=== PATIENT | male | born 1935 | race Caucasian/White ===

== ENCOUNTER 2016-08-31 12:03 | Day surgery (SDC) | payer MEDICARE, OTHER ==
[2016-08-31] MEDS ORDERED: KETOROLAC 0.45% OPHTH DROPS OPTH ONE (12:20)
[2016-08-31] MEDS ORDERED: TROPICAMIDE 1% OPHTH 2 ML DROPS OPTH ONE (12:20)
[2016-08-31] MEDS ORDERED: CYCLOPENTOLATE 1% OPHTH DROPS 2 ML OPTH ONE (12:20)
[2016-08-31] MEDS ORDERED: LACTATED RINGERS 500 ML IV ONE (12:49)
[2016-08-31] MEDS ORDERED: LACTATED RINGERS 1,000 ML IV ONE (12:56)
[2016-08-31] MEDS ORDERED: TETRACAINE 0.5% OPHTH DROPS 4 ML OPTH ONE (13:05)
[2016-08-31] MEDS ORDERED: PROPARACAINE 0.5% OPHTH DROPS 15 ML OPTH ONE (13:05)
[2016-08-31] MEDS ORDERED: MIDAZOLAM 2 MG/2 ML VIAL IVP ONE (13:05)
[2016-08-31] MEDS ORDERED: CHONDR SULF/HYALURONATE SYRINGE IO ONE (13:05)
[2016-08-31] MEDS ORDERED: BRIMONIDINE 0.2% OPHTH DROPS 5 ML OPTH ONE (13:05)
[2016-08-31] MEDS ORDERED: levoFLOXacin 0.5% OPHTH DROPS 5 ML OPTH ONE (13:05)
[2016-08-31] MEDS ORDERED: BSS/LIDOCAINE/EPINEPHRINE 1 ML SYRINGE IO ONE (13:05)
[2016-08-31] MEDS ORDERED: EPINEPHrine 1 MG/ML AMP IO ONE (13:05)
== END 2016-08-31 12:04 | disposition home or self-care (01) ==
PROC: 08RJ3JZ Replacement of Right Lens with Synthetic Substitute, Percutaneous Approach (ICD-10-PCS; principal; 2016-08-31 13:00)
DX: H25.11 Age-related nuclear cataract, right eye (principal); G47.30 Sleep apnea, unspecified; I25.10 Atherosclerotic heart disease of native coronary artery without angina pectoris; Z87.891 Personal history of nicotine dependence; I10 Essential (primary) hypertension
CPT/HCPCS: 66984; J7120; V2632

== ENCOUNTER 2016-09-14 09:21 | Day surgery (SDC) | payer MEDICARE, OTHER ==
[2016-09-14] MEDS ORDERED: LACTATED RINGERS 500 ML IV ONE (09:48)
[2016-09-14] MEDS ORDERED: TROPICAMIDE 1% OPHTH 2 ML DROPS OPTH ONE (09:49)
[2016-09-14] MEDS ORDERED: CYCLOPENTOLATE 1% OPHTH DROPS 2 ML OPTH ONE (09:50)
[2016-09-14] MEDS ORDERED: KETOROLAC 0.45% OPHTH DROPS OPTH ONE (09:50)
[2016-09-14] MEDS ORDERED: MIDAZOLAM 2 MG/2 ML VIAL IVP ONE (11:30)
[2016-09-14] MEDS ORDERED: METOPROLOL 5 MG/5 ML VIAL IVP ONE (11:30)
[2016-09-14] MEDS ORDERED: PROPARACAINE 0.5% OPHTH DROPS 15 ML OPTH ONE (11:46)
[2016-09-14] MEDS ORDERED: levoFLOXacin 0.5% OPHTH DROPS 5 ML OPTH ONE (11:47)
[2016-09-14] MEDS ORDERED: TETRACAINE 0.5% OPHTH DROPS 4 ML OPTH ONE (11:47)
[2016-09-14] MEDS ORDERED: BRIMONIDINE 0.2% OPHTH DROPS 5 ML OPTH ONE (11:47)
[2016-09-14] MEDS ORDERED: EPINEPHrine 1 MG/ML AMP IR ONE (11:47)
[2016-09-14] MEDS ORDERED: CHONDR SULF/HYALURONATE SYRINGE IO ONE (11:47)
[2016-09-14] MEDS ORDERED: BSS/LIDOCAINE/EPINEPHRINE 1 ML SYRINGE IO ONE (11:48)
== END 2016-09-14 09:22 | disposition home or self-care (01) ==
PROC: 08RK3JZ Replacement of Left Lens with Synthetic Substitute, Percutaneous Approach (ICD-10-PCS; principal; 2016-09-14 10:30)
DX: H25.9 Unspecified age-related cataract (principal); I50.9 Heart failure, unspecified; G47.30 Sleep apnea, unspecified; Z87.891 Personal history of nicotine dependence
CPT/HCPCS: 66984; V2632

== ENCOUNTER 2016-12-13 15:04 | Outpatient (CLI) | payer MEDICARE, OTHER ==
[2016-12-13 18:27] LABS: BASOPHILS # (AUTO) 0.1 10^3/uL (0.0-0.1); EOSINOPHILS # (AUTO) 0.1 10^3/uL (0.0-0.7); EOSINOPHILS % (AUTO) 1.7 %; HCT - HEMATOCRIT 33.7 % (42.0-52.0); HGB - HEMOGLOBIN 11.4 g/dL (14.0-18.0); LYMPHOCYTES # (AUTO) 0.8 10^3/uL (1.5-3.5); LYMPHOCYTES % (AUTO) 14.1 %; MEAN CORPUSCULAR HGB CONC 33.8 g/dL (32.0-36.0); MEAN CORPUSCULAR VOLUME 88.7 fL (80.0-94.0); MEAN PLATELET VOLUME 7.7 fL (7.4-11.4); MONOCYTES # (AUTO) 0.6 10^3/uL (0.0-1.0); MONOCYTES % (AUTO) 9.8 %; NEUTROPHILS # (AUTO) 4.4 10^3/uL (1.5-6.6); NEUTROPHILS % (AUTO) 73.4 %; NUCLEATED RED BLOOD CELLS AUTO 0.1 /100WBC; RED CELL DISTRIBUTION WIDTH 15.4 % (12.0-15.0)
[2016-12-13 18:53] LABS: ALBUMIN/GLOBULIN RATIO 1.2 (1.0-2.2); CALCIUM 9.7 mg/dL (8.5-10.3); CREATININE 1.8 mg/dL (0.6-1.2); POTASSIUM 4.7 mmol/L (3.5-5.0); TOTAL PROTEIN 7.4 g/dL (6.7-8.2)
== END 2016-12-13 15:05 | disposition home or self-care (01) ==
LOC: LAB.F 15:04
PROVIDERS: ATTEND Internal Medicine
DX: L03.113 Cellulitis of right upper limb (principal)
CPT/HCPCS: 36415; 80053; 85025

== ENCOUNTER 2018-12-07 18:45 | Emergency (ER) | payer MEDICARE, OTHER ==
--- NOTE | 2018-12-07 19:25 | ED Physician Documentation ---
PD HPI HEADACHE - Stated complaint Stated Complaint: HEADACHE/BLURRED VISION - Chief complaint Chief Complaint: Neuro - History obtained from History obtained from: Patient - History of Present Illness Timing - onset: Today Timing - onset during: Sleep Timing - duration: Days (1) Timing - details: Abrupt onset Pain level now: 4 Location: Back Associated symptoms: Stiff neck, Vision changes (Decreased "clarity".). No: Fever, Nausea, Vomiting, Weakness, Numbness, Syncope, Seizure, Eye pain Improved by: Nothing Contributing factors: Hypertension. No: Anticoagulated, Recent illness, Trauma Similar symptoms before: Has not had sx before - Additional information Additional information: This is an 83-year-old man who presents with his complaints that he woke up this morning around 10 AM and had a headache. Took some Tylenol and then took another dose around noon that did not seem to help around 3:00 this afternoon he noticed some vision issues where he just felt like the clarity was cut off had some difficulty reading his computer screen and then after his arrived home he had difficulty recognizing the faces on the TV screen. He has been experiencing "spells" for years where he developed some tinnitus and cannot loses his balance. The neurologist had not been able to figure out what is causing the symptoms. The patient was very active today bringing up much garbage can stand and yesterday he was hauling hoses around the yard for about 30 minutes. He is complaining of neck pain. He has had no nausea vomiting or diarrhea. Denies dizziness. He does think the edema in his lower extremities has increased slightly released recently. He is not taking any blood thinners and tells me however he has very thin blood. Review of Systems Constitutional: denies: Fever Eyes: reports: Decreased vision Ears: reports: Tinnitus/ringing. denies: Loss of hearing Nose: denies: Rhinorrhea / runny nose, Congestion Throat: denies: Sore throat Cardiac: denies: Chest pain / pressure, Palpitations Respiratory: reports: Dyspnea (Chronically short of breath with exertion). denies: Cough GI: denies: Abdominal Pain, Nausea, Vomiting, Diarrhea : denies: Dysuria, Frequency Skin: denies: Rash Musculoskeletal: reports: Neck pain Neurologic: reports: Headache. denies: Generalized weakness, Focal weakness, Numbness, Difficulty speaking, Near syncope, Syncope, Confused, Altered mental status, Head injury, LOC PD PAST MEDICAL HISTORY - Past Medical History Past Medical History: Yes Cardiovascular: Congestive heart failure, Other Respiratory: Sleep apnea, CPAP use Endocrine/Autoimmune: None GI: Pancreatitis : Other Psych: None Musculoskeletal: None Derm: Other - Past Surgical History Past Surgical History: Yes General: Cholecystectomy, Appendectomy, Bowel surgery Ortho: Knee replacement Cardiovascular: CABG, Pacemaker, Other HEENT: Cataracts - Present Medications Home Medications: Ambulatory Orders Medication Instructions Recorded Confirmed Furosemide [Lasix] 20 mg PO DAILY 05/08/13 12/07/18 Lisinopril [Prinivil] 20 mg PO BID 05/08/13 12/07/18 Tamsulosin HCl 0.4 mg PO DAILY 05/08/13 12/07/18 Metoprolol Succinate 100 mg PO BID 05/09/14 12/07/18 Amiodarone [Pacerone] 100 mg PO DAILY 08/31/16 12/07/18 Finasteride 5 mg PO DAILY 12/07/18 12/07/18 - Allergies Allergies/Adverse Reactions: Allergies Allergy/AdvReac Type Severity Reaction Status Date / Time fentanyl AdvReac Unknown Verified 08/31/16 12:24 promethazine HCl * AdvReac Unknown Verified 08/31/16 12:24 [From Phenergan] Sulfa (Sulfonamide AdvReac Rash Verified 08/31/16 12:24 Antibiotics) - Social History Does the pt smoke?: No Smoking Status: Former smoker Does the pt drink ETOH?: No Does the pt have substance abuse?: No - POLST Patient has POLST: No PD ED PE NORMAL - Vitals Vital signs reviewed: Yes - General General: Alert and oriented X 3, No acute distress, Well developed/nourished - HEENT HEENT: Atraumatic, PERRL, EOMI, Moist mucous membranes, Pharynx benign - Neck Neck: Supple, no meningeal sign - Cardiac Cardiac: RRR, No murmur - Respiratory Respiratory: No respiratory distress - Abdomen Abdomen: Normal bowel sounds, Soft - Derm Derm: Normal color, Warm and dry, No rash - Neuro Neuro: Alert and oriented X 3, No motor deficit, No sensory deficit, Normal speech, Other (The patient initially told me he could not see my fingers in his left visual field. I was unable to reproduce that.) Results - Vitals Vitals: Vital Signs - 24 hr 12/07/18 12/07/18 12/07/18 18:47 19:05 19:30 Temperature 36.8 C Heart Rate 70 70 75 Respiratory 16 14 14 Rate Blood Pressure 176/93 H 170/101 H 170/107 H O2 Saturation 99 99 97 12/07/18 12/07/18 12/07/18 20:00 20:34 21:00 Temperature Heart Rate 76 72 70 Respiratory 14 18 14 Rate Blood Pressure 186/113 H 168/105 H O2 Saturation 97 100 100 12/07/18 12/07/18 12/07/18 21:06 21:21 21:24 Temperature 36.8 C Heart Rate 73 70 Respiratory 14 15 Rate Blood Pressure 173/111 H 183/107 H O2 Saturation 100 100 12/07/18 12/07/18 12/07/18 21:28 21:33 21:40 Temperature Heart Rate 70 74 Respiratory 14 16 Rate Blood Pressure 172/98 H 162/95 H 160/94 H O2 Saturation 99 100 Oxygen O2 Source Room air - EKG (time done) 1921 Rate: Rate (enter#) Rhythm: Paced (Dual-chamber pacer) Intervals: Wide QRS (Due to paced rhythm) Ischemia: Non specific changes (Due to paced rhythm) - Labs Labs: Laboratory Tests 12/07/18 12/07/18 12/07/18 19:10 19:10 19:10 WBC 5.2 RBC 3.42 L Hgb 10.4 L Hct 30.4 L MCV 88.9 MCH 30.5 MCHC 34.2 RDW 18.4 H Plt Count 143 MPV 6.5 L Neut # (Auto) 3.1 Lymph # (Auto) 1.3 L Dixon # (Auto) 0.5 Eos # (Auto) 0.1 Baso # (Auto) 0.1 Absolute Nucleated RBC 0.00 Nucleated RBC % 0.0 PT 13.5 H INR 1.2 Sodium 136 Potassium 4.4 Chloride 100 L Carbon Dioxide 25 Anion Gap 11.0 BUN 32 H Creatinine 1.6 H Estimated GFR (MDRD) 41 L Glucose 106 H POC Whole Bld Glucose Calcium 9.5 Total Bilirubin 0.8 AST 20 ALT 15 Alkaline Phosphatase 74 Troponin I Total Protein 7.7 Albumin 3.8 Globulin 3.9 Albumin/Globulin Ratio 1.0 Lipase 44 Urine Color Urine Clarity Urine pH Ur Specific Harlan Urine Protein Urine Glucose (UA) Urine Ketones Urine Occult Blood Urine Nitrite Urine Bilirubin Urine Urobilinogen Ur Leukocyte Esterase Urine RBC Urine WBC Ur Squamous Epith Cells Urine Bacteria Ur Microscopic Review Urine Culture Comments 12/07/18 12/07/18 12/07/18 19:10 19:52 20:14 WBC RBC Hgb Hct MCV MCH MCHC RDW Plt Count MPV Neut # (Auto) Lymph # (Auto) Dixon # (Auto) Eos # (Auto) Baso # (Auto) Absolute Nucleated RBC Nucleated RBC % PT INR Sodium Potassium Chloride Carbon Dioxide Anion Gap BUN Creatinine Estimated GFR (MDRD) Glucose POC Whole Bld Glucose 97 Calcium Total Bilirubin AST ALT Alkaline Phosphatase Troponin I < 0.04 Total Protein Albumin Globulin Albumin/Globulin Ratio Lipase Urine Color YELLOW Urine Clarity CLEAR Urine pH 6.0 Ur Specific Harlan <=1.005 Urine Protein 30 H Urine Glucose (UA) NEGATIVE Urine Ketones NEGATIVE Urine Occult Blood TRACE-INTA Urine Nitrite NEGATIVE Urine Bilirubin NEGATIVE Urine Urobilinogen 0.2 (NORMAL) Ur Leukocyte Esterase NEGATIVE Urine RBC 0-5 Urine WBC 0-3 Ur Squamous Epith Cells FEW Squamous Urine Bacteria None Seen Ur Microscopic Review INDICATED Urine Culture Comments NOT INDICATED - Rads (name of study) CT head Radiology: Prelim report reviewed, See rad report CXR Radiology: Prelim report reviewed, See rad report PD MEDICAL DECISION MAKING - ED course Complexity details: re-evaluated patient, d/w patient, d/w family, d/w human resources consultant ED course: The patient's head CT showed a intraparenchymal right hemorrhage in the parietal occipital lobes and into the right ventricle. No mass-effect. White blood cell count and hemoglobin were normal BUN 32 creatinine 1.6 troponin was normal and his INR was 1.2. I discussed case with Dr. Cabrera at [facility] and they have agreed to accept patient in transfer. She requested blood pressure control target of 160/105. I written for a nicardipine drip before it could get started if his blood pressure was down to 168/105.Patient was transported by ground ambulance. He is a DNR and even had some thoughts of not being transferred for any evaluation or intervention. - Critical Care Time(min): 45 Time Includes: Direct patient care, Review records, Reassess patient, Document care, Coordinate care, Family consult for tx dec Data interpretation: Labs, CXR, Prior EKG, See progress note Procedures included in critical care time: See progress note Departure - Departure Disposition: 02 Transfer Acute Care Hosp Discharge Date/Time: 12/07/18 21:46
[2018-12-07 19:29] LABS: BASOPHILS # (AUTO) 0.1 10^3/uL (0.0-0.1); BASOPHILS % (AUTO) 1.1 %; EOSINOPHILS # (AUTO) 0.1 10^3/uL (0.0-0.7); EOSINOPHILS % (AUTO) 1.4 %; HGB - HEMOGLOBIN 10.4 g/dL (14.0-18.0); LYMPHOCYTES # (AUTO) 1.3 10^3/uL (1.5-3.5); MEAN CORPUSCULAR HEMOGLOBIN 30.5 pg (27.0-31.0); MEAN CORPUSCULAR HGB CONC 34.2 g/dL (32.0-36.0); MEAN CORPUSCULAR VOLUME 88.9 fL (80.0-94.0); MEAN PLATELET VOLUME 6.5 fL (7.4-11.4); MONOCYTES # (AUTO) 0.5 10^3/uL (0.0-1.0); MONOCYTES % (AUTO) 10.6 %; NEUTROPHILS # (AUTO) 3.1 10^3/uL (1.5-6.6); NEUTROPHILS % (AUTO) 60.9 %; PLT - PLATELET COUNT 143 10^3/uL (130-450); RED BLOOD COUNT 3.42 10^6/uL (4.70-6.10); RED CELL DISTRIBUTION WIDTH 18.4 % (12.0-15.0); WHITE BLOOD COUNT 5.2 x10^3/uL (4.8-10.8)
[2018-12-07 19:45] LABS: ALBUMIN 3.8 g/dL (3.2-5.5); BILIRUBIN,TOTAL 0.8 mg/dL (0.2-1.0); CREATININE 1.6 mg/dL (0.6-1.2); TOTAL PROTEIN 7.7 g/dL (6.7-8.2)
[2018-12-07] MEDS ORDERED: diphenhydrAMINE INJ 50 MG/ML VIAL IVP STA (19:54)
[2018-12-07 19:55] LABS: CALCIUM 9.5 mg/dL (8.5-10.3)
[2018-12-07] MEDS ORDERED: SODIUM CHLORIDE 0.9% 1,000 ML IV ONE (19:58)
[2018-12-07 20:19] LABS: INR 1.2 (0.8-1.2); PT - PROTHROMBIN TIME 13.5 secs (9.9-12.6)
--- NOTE | 2018-12-07 20:19 | CT Report ---
Reason: headache Procedure Date: 12/07/2018 Accession Number: [id number] / [id number] Procedure: CT - HEAD WO CPT Code: FULL RESULT: EXAM: CT HEAD EXAM DATE: 12/07/2018 08:06 PM. CLINICAL HISTORY: Headache. COMPARISON: None. TECHNIQUE: Multiaxial CT images were obtained from the foramen magnum to the vertex. Reformats: Sagittal and coronal. IV contrast: None. In accordance with CT protocol optimization, one or more of the following dose reduction techniques were utilized for this exam: automated exposure control, adjustment of mA and/or KV based on patient size, or use of iterative reconstructive technique. FINDINGS: Parenchyma: A large focus of acute hemorrhage is seen in the right posterior parieto-occipital lobe, measuring approximately 5 x 3.5 cm with extension into the right lateral ventricle (image 17 of series 3). There is mild perilesional edema with mild mass-effect. There is mild leftward midline shift of posterior facts by approximately 2 mm. . Extraaxial Spaces: Prominent due to atrophy. No subdural or epidural collections identified. Ventricles: Dilated secondary to atrophy. Not likely represent obstructive hydrocephalus. Sinuses and Orbits: Imaged paranasal sinuses, orbits, and mastoids show no significant abnormality. Bones: No evidence of fracture or calvarial defect. Other: None. IMPRESSION: Large (5 x 3.5 cm) focus of acute intraparenchymal hemorrhage in right posterior parietal and occipital lobe with mild perilesional edema. Extension of acute hemorrhage in right lateral ventricle. Mild mass-effect and mild leftward/2 mm shift of the posterior falx cerebri. Differentials include hypertensive bleed versus tumoral bleed versus amyloid bleed. To be correlated clinically. No herniation. Dilated ventricles are likely secondary to diffuse cerebral atrophy and does not represent obstructive hydrocephalus. [facility] The call report notification system was initiated by Dr. Yulia Rodriguez at 08:12 PM on 12/07/2018. The above call report findings were discussed with Yumiko Cartwright by Dr. Yulia Rodriguez at 08:13 PM on 12/07/2018.
[2018-12-07 20:26] LABS: BILIRUBIN,URINE NEGATIVE (NEGATIVE); GLUCOSE, URINE (UA) NEGATIVE (NEGATIVE); KETONES,URINE (UA) NEGATIVE (NEGATIVE); LEUKOCYTE ESTERASE, URINE NEGATIVE (NEGATIVE); NITRITE,URINE NEGATIVE (NEGATIVE); OCCULT BLOOD,URINE TRACE-INTA (NEGATIVE); PROTEIN,URINE 30 mg/dL (NEGATIVE); UROBILINOGEN,URINE 0.2 (NORMAL) E.U./dL (NORMAL)
[2018-12-07 20:27] LABS: CLARITY,URINE CLEAR (CLEAR)
[2018-12-07] MEDS ORDERED: niCARdipine 20 MG/200 ML 20 MG/200 ML BAG IV STA (20:49)
[2018-12-07 20:58] LABS: BACTERIA,URINE None Seen /HPF (None Seen); RBC,URINE 0-5 /HPF (0-5); SQUAMOUS EPITHELIAL CELL,UR FEW Squamous (<= Few)
[2018-12-07 21:42] VITALS: BP 160/94
== END 2018-12-07 21:46 | disposition short-term general hospital (02) ==
LOC: ED 18:45
DX: I61.8 Other nontraumatic intracerebral hemorrhage (principal); Z87.891 Personal history of nicotine dependence; I11.0 Hypertensive heart disease with heart failure; I50.9 Heart failure, unspecified; Z95.0 Presence of cardiac pacemaker; Z95.1 Presence of aortocoronary bypass graft; Z66 Do not resuscitate
CPT/HCPCS: 36415; 70450; 80053; 81001; 83690; 84484; 85025; 85610; 93005; 96365; 99285; 99291; J1200; 81003; 87086

== ENCOUNTER 2018-12-07 21:43 | Outpatient (CLI) | payer MEDICARE, OTHER | END 2018-12-07 21:44 | disposition short-term general hospital (02) | LOC: EMS 21:43 | PROVIDERS: ATTEND Surgery | DX: I62.9 Nontraumatic intracranial hemorrhage, unspecified (principal) | CPT/HCPCS: A0425; A0426 ==